=== PATIENT | male | born 1995 | race Caucasian/White ===

== ENCOUNTER 2021-10-19 | Emergency (ER) | payer SELFPAY | END 2021-10-19 01:00 | disposition home or self-care (01) | LOC: JP.ED | DX: F10.129 Alcohol abuse with intoxication, unspecified (principal) | CPT/HCPCS: 99284 ==

== ENCOUNTER 2021-11-21 23:10 | Emergency (ER) | payer SELFPAY ==
[2021-11-21] MEDS ORDERED: Lidocaine 1% with EPINEPHrine 1:100,000 50 ML MDV INFILT STA (23:14)
[2021-11-21] MEDS ORDERED: Bacitracin Oint 1 GM U/D Packet TOP ONE (23:37)
[2021-11-21] MEDS ORDERED: Diphtheria,Pertussis(Acell),Tetanus Vaccine 0.5 ML Syringe IM ONE (23:49)
== END 2021-11-22 00:40 | disposition home or self-care (01) ==
LOC: JP.ED 23:10
DX: S01.81XA Laceration without foreign body of other part of head, initial encounter (principal); F10.129 Alcohol abuse with intoxication, unspecified; Y90.8 Blood alcohol level of 240 mg/100 ml or more; Z23 Encounter for immunization; W18.09XA Striking against other object with subsequent fall, initial encounter
CPT/HCPCS: 12002; 12014; 36415; 70450; 72125; 80053; 80305-QW; 80307; 81001; 85025; 85610; 85730; 90471; 99283; 99285-25

== ENCOUNTER 2022-01-22 01:26 | Emergency (ER) | payer SELFPAY ==
[2022-01-22] MEDS ORDERED: EPINEPHrine 1:10,000 1 MG/10 ML Syringe IV ONE ×3 (01:27→01:34)
== END 2022-01-22 01:43 | disposition expired ==
LOC: JP.ED 01:26 → MERGE 01:26 → JP.ED 03:49
DX: S01.03XA Puncture wound without foreign body of scalp, initial encounter (principal); W34.00XA Accidental discharge from unspecified firearms or gun, initial encounter
CPT/HCPCS: 31500; 36415; 43752; 70450; 80307; 85025; 86900; 86901; 92950; 96374; 99285; 99285-25; J0171